=== PATIENT | female | born 2000 | race Caucasian/White ===

== ENCOUNTER 2023-11-15 08:26 | Emergency (ER) | payer OTHER, SELFPAY ==
[2023-11-15 08:32] VITALS: BP 117/78; PULSE 120; TEMP 37; O2SAT 98; BMI 38.0
--- NOTE | 2023-11-15 09:21 | XR_ITS ---
The [address] [address] Patient Name: ROXIE PANDEY MRN: [id number] date: 2000 Sex: F Assigned Patient Location: ER Current Patient Location: ER Accession/Order Number: [id number] Exam Date: 11/15/2023 09:31 Report Date: 11/15/2023 10:11 At the request of: STEPHANIE MESSER Procedure: XR acute abdomen series EXAMINATION: XR acute abdomen series HISTORY: constipation COMPARISON: No relevant comparison available. FINDINGS: LUNGS: No infiltrate, pneumothorax, or pleural effusion. MEDIASTINUM: No abnormal widening. BOWEL GAS PATTERN: Non-obstructed. Moderate amount of stool FREE AIR: None. CALCIFICATIONS: None significant. BONES: No fracture or visible bone lesion. OTHER: Negative. XR/XR acute abdomen series IMPRESSION: Clear lungs Moderate amount of stool Electronically authenticated by: KOURTNEY JONES Date: 11/15/2023 10:11
--- NOTE | 2023-11-15 09:25 | ED_ITS ---
HPI - Female Genitourinary General Chief complaint: Urogenital-Female Stated complaint: DIFFICULTY URINATING, CONSTIPATION Time Seen by Provider: 11/15/23 08:29 Source: patient Mode of arrival: walk-in Limitations: no limitations History of Present Illness HPI Narrative: Patient presents ED complaining of constipation. She also Complains of decreased urination. She reports that she has diffuse abdominal pain. She states her last bowel movement was 8 days ago. She states that she does not have any urge to go but she has been trying to go. She did try an enema at home without any movement. She states she does have a history of kidney stones. No fever. She denies history of constipation issues. No nausea no vomiting Related Data Previous Rx's ?Medication ?Instructions ?Recorded magnesium citrate 70 mg-potassium 1 cap PO DAILY PRN constipation #7 11/15/23 citrate 99 mg capsule caps Allergies Allergy/AdvReac Type Severity Reaction Status Date / Time amoxicillin Allergy Severe Hives Verified 11/15/23 08:32 Penicillins Allergy Severe Hives Verified 11/15/23 08:32 Review of Systems ROS Status of ROS 10 or more systems reviewed and unremark able except as noted in history and below Exam Narrative Exam Narrative: Time Seen: [] Vital Signs: [Per nurse's notes.] General: [Alert] Skin: [Warm, dry, no rash.] Head: [Normocephalic, atraumatic.] Neck: [Supple, trachea midline.] Eye: [Pupils are equal, round and reactive to light, extraocular movements are intact, normal conjunctiva.] Ears, nose, mouth and throat: oral mucosa moist. Cardiovascular: [Regular rate and rhythm, no murmur.] Respiratory: [Lungs are clear to auscultation, respirations are non-labored, breath sounds are equal.] Chest wall: [No tenderness, no deformity.] Gastrointestinal: [Soft, Mild diffuse abdominal tenderness No peritoneal signs no rebound no guard, non distended, normal bowel sounds.] MSK: 5 out of 5 muscle strength x 4 extremities no calf pain or edema Lymphatics: [No lymphadenopathy.] Psychiatric: [Cooperative, appropriate mood & affect.] Neurological: [Alert and oriented to person, place, time, and situation, no focal neurological deficit observed.] Constitutional Vital Signs, click to edit/add: Last Vital Signs Temp 98.6 F 11/15/23 08:32 Pulse 120 H 11/15/23 08:32 Resp 20 11/15/23 08:32 BP 117/78 11/15/23 08:32 Pulse Ox 98 11/15/23 08:32 Course Vital Signs Vital signs: Vital Signs Temperature 98.6 F 11/15/23 08:32 Pulse Rate 120 H 11/15/23 08:32 Respiratory Rate 20 11/15/23 08:32 Blood Pressure 117/78 11/15/23 08:32 Pulse Oximetry 98 11/15/23 08:32 Temperature 98.6 F 11/15/23 08:32 Pulse Rate 120 H 11/15/23 08:32 Respiratory Rate 20 11/15/23 08:32 Blood Pressure 117/78 11/15/23 08:32 Pulse Oximetry 98 11/15/23 08:32 MDM - Female Genitourinary MDM Narrative Medical decision making narrative: X-ray shows moderate stool. No impaction no severe constipation no bowel obstruction. UA is clean. No evidence of blood kidney stone or kidney infection. Patient instructed to take p.o. meds and also continue to try home enemas. Increase fluid intake and exercise to stimulate bowel movement. Return to ED if worsening symptoms. Differential Diagnosis Differential diagnosis: Likely urinary tract infection and other (Constipation, bowel obstruction) Medical Records Attestation: I reviewed the patient's medical records. Lab Data Attestation: I reviewed the patient's lab results. Labs: Lab Results 11/15/23 Range/Units 10:12 Urine Color Lt. yellow (YELLOW) Urine Clarity Clear (CLEAR) Urine pH 6.5 (5.0-9.0) Ur Specific [place] 1.015 (1.005-1.025) Urine Protein Negative (NEG/TRACE) mg/dL Urine Glucose (UA) Negative (NEGATIVE) mg/dL Urine Ketones Negative (NEGATIVE) mg/dL Urine Occult Blood Negative (NEGATIVE) Urine Nitrite Negative (NEGATIVE) Urine Bilirubin Negative (NEGATIVE) Urine Urobilinogen 0.2 (0.2-1.0) EU/dL Ur Leukocyte Esterase Negative (NEGATIVE) Urine HCG, Qual Negative (NEGATIVE) Imaging Data Chest x-ray: Radiologist's impression: ITS Impressions Chest/Abdomen X-ray 11/15/23 09:21 IMPRESSION: Clear lungs Moderate amount of stool Electronically authenticated by: KOURTNEY JONES Date: 11/15/2023 10:11 Discharge Plan Discharge Stand Alone Forms: Portal Instructions Chief Complaint: Urogenital-Female Clinical Impression: Constipation Patient Disposition: Home, Self-Care Time of Disposition Decision: 11:19 Condition: Good Mode of Transportation: Private Vehicle Prescriptions / Home Meds: New mag citrate-potassium citrate 70-99 mg capsule 1 cap PO DAILY PRN (Reason: constipation) Qty: 7 0RF Print Language: [place] Zealander Instructions: Constipation (ED) Referrals: DAVION PORTILLO [Primary Care Provider] - 1 week
--- NOTE | 2023-11-15 09:59 | PC.NURSE ---
patient bladder scanned for urine and noted to have about 150ml of urine. patient educated on why we do not like to just randomly straight cath for urine due to increased risk of infection. patient verbalizes understanding and goes to the bathroom to attempt to get urine sample
[2023-11-15 10:46] LABS: Bilirubin Urine NEGATIVE (NEGATIVE); Blood Urine NEGATIVE (NEGATIVE); Clarity Urine CLEAR (CLEAR); Color Urine LT. YELLOW (YELLOW); Glucose Urine UA NEGATIVE (NEGATIVE); Ketones Urine NEGATIVE (NEGATIVE); Leukocyte Esterase Urine NEGATIVE (NEGATIVE); Nitrite Urine NEGATIVE (NEGATIVE); Protein Urine NEGATIVE (NEG/TRACE); Specific Gravity Urine 1.015 (1.005-1.025); Urine Microscopic Indicated NO; Urobilinogen Urine 0.2 EU/dL (0.2-1.0); pH Urine 6.5 (5.0-9.0)
[2023-11-15 11:09] LABS: HCG Qualitative Urine* NEGATIVE (NEGATIVE)
[2023-11-15 11:34] VITALS: BP 120/80; PULSE 108; O2SAT 98
== END 2023-11-15 11:38 | disposition home or self-care (01) ==
PROVIDERS: Emergency Provider Emergency Medicine; PCP Family Medicine
DX: K59.00 Constipation, unspecified (principal); Z87.442 Personal history of urinary calculi
CPT/HCPCS: 74022; 81003; 84703; 99284